=== PATIENT | male | born 1965 | race American Indian/Alaskan Native ===

== ENCOUNTER 2022-02-01 07:49 | Outpatient (CLI) | payer OTHER ==
[2022-02-01] MEDS ORDERED: METOPROLOL TARTRATE 50 MG TAB ONE (09:05)
[2022-02-01] MEDS ORDERED: ATROPINE 0.1% (1 MG/10 ML) CARDIAC SYRINGE ONE (09:06)
[2022-02-01] MEDS ORDERED: METOPROLOL TARTRATE 5 MG/5 ML INJ IV ONE (09:07)
[2022-02-01 09:13] LABS: BUN/Creatinine Ratio 10; Blood Urea Nitrogen 10 mg/dL (9-20); Calcium 9.4 mg/dL (8.4-10.2); Hemolysis Index 5
[2022-02-01] MEDS ORDERED: NITROGLYCERIN 0.4 MG TAB SUBL SL ONE ×2 (10:04→10:37)
[2022-02-01 10:54] VITALS: BP 116/78
--- NOTE | 2022-02-01 11:16 | Cat Scan Report ---
The following report is a radiology over-read of a CT angiogram study. CT angiogram study is reported separately by Cardiology. CT ANGIOGRAM OVER-READ TECHNIQUE: Limited CT through the heart and lung bases. All CT scans at this location are performed using CT dos e reduction for ALARA by means of automated exposure control. COMPARISON: None available. FINDINGS: VISUALIZED LUNGS / PLEURA: There is minimal scarring/atelectasis in the left greater than right lower lobes with otherwise clear lungs. HEART / MEDIASTINUM: No significant abnormality. SKELETAL SYSTEM: No significant abnormality. ADDITIONAL FINDINGS: No significant additional abnormality. IMPRESSION: 1. No significant extracardiac abnormality. Signer Name: Guzman Villalta MD Signed: 02/01/2022 11:12 AM Workstation Name: [id number]
--- NOTE | 2022-02-01 18:48 | CT Calcium Scoring Report ---
Coronary Calcium Score Date of service: 02/01/22 Procedure: High-resolution computed tomographic imaging of the chest was performed on02/01/22 with particular attention paid to the coronary arteries. Images from the examination were analyzed for the presence and extent of coronary artery calcification, using coronary calcium quantification software. The patient tolerated the procedure well and there were no complications. The results of the coronary calcification analysis are provided below. The patient scores are compared with published data related to scores for people of a similar age and the same gender. - Findings Left Main Artery: 19.1 Left Anterior Descending Artery: 193.5 Left Circumflex(LCX): 0 Right Coronary Artery(RCA): 38.1 Total Agatson Score: 250.7 Percentile Ranking: >75 Findings: Cardiac CTA Indication: shortness of breath, abnormal stress test Informed consent obtained Procedure: The patient was brought to the cardiac ct laboratory at [facility] in stable condition after a 4 hour fast. Heart rate was regulated by beta blockade. Sublingual ngt was administered. After data acquisition and reconstruction, the images were processed and reviewed on the computer workstation. Multiple phases of the cardiac cycle were assessed for image interpretation. Volume rendered images, multiplanar reformated images, and maximum intensity projections images were generated and reviewed A coronary calcium score was performed via the Agatston method. A separate radiology assessment of the non cardiac structures in the field of view will be provided. Superior vena cava in the field of view appears normal Inferior vena cava in the filed of view appears normal Ascending aorta in the field of view appears normal Descending aorta in the field of view appears normal Pulmonary artery in the filed of view appears normal Pulmonary veins enter the left atrium appropriately Left ventricle appears normal Right Ventricle appears normal Left atrium appears normal Left atrial appendage appears normal Right atrium appears normal Interventricular septum appears normal Interatrial septum appears normal Aortic valve appears normal Mitral Valve appears normal Intracardiac mass: none Pericardial effusion: none Coronary Angiography: Dominance: left Origins: normal Left main: normal Left anterior descending coronary artery and diagonal branches: contain non obstructive calcific plaque in the proximal portions of the vessels Circumflex coronary artery and obtuse marginal branches: normal Right coronary artery: contains non obstructive calcific plaque in the proximal vessel the procedure was well tolerated. there were no procedural complications the study was limited by misregistration aftifact. no significant obstructive coronary disease is seen. consider further evaluation with invasive coronary angiography if clinically warranted.
== END 2022-02-01 07:50 | disposition home or self-care (01) ==
LOC: CATHLABREC 07:49 → CT 07:49 → CATHLABREC 07:50
PROVIDERS: ATTEND Specialist
DX: R94.39 Abnormal result of other cardiovascular function study (principal)
CPT/HCPCS: 36415; 75574; 80048; Q9967; J0461